=== PATIENT | female | born 1995 | race Caucasian/White ===

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

== ENCOUNTER 2018-06-18 04:21 | Emergency (ER) | payer OTHER ==
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
[2018-06-18 08:31] VITALS: BP 121/97
== END 2018-06-18 08:38 | disposition home or self-care (01) ==
LOC: ED 04:21
DX: F10.129 Alcohol abuse with intoxication, unspecified (principal); Z88.0 Allergy status to penicillin
CPT/HCPCS: 99283

== ENCOUNTER 2018-12-13 05:03 | Emergency (ER) | payer BC, OTHER ==
[2018-12-13] MEDS ORDERED: Cocaine 4% TOPICAL* 4 ML TOP.SOLN LEFT NARE ONE (05:20)
--- NOTE | 2018-12-13 05:23 | ED ---
Throat Pain/Nasal Congestion - HPI Summary HPI Summary: Pt is a 23 y/o F presenting to the ED with a chief complaint of epistaxis. She states that she has been experiencing epistaxis intermittently since 12/09/18. She states she woke up three separate times tonight due to her bloody nose, and it is usually in the L nostril but tonight it was both. She also notes that she has been bruising very easily lately. - History of Current Complaint Chief Complaint: EDEpistaxis Time Seen by Provider: 12/13/18 05:16 Hx Obtained From: Patient Onset/Duration: Gradual Onset, Lasting Days, Still Present Severity: Moderate Related History: T & A - Allergies/Home Medications Allergies/Adverse Reactions: Allergies Allergy/AdvReac Type Severity Reaction Status Date / Time Penicillins Allergy Unknown Verified 12/13/18 05:06 Reaction Details Home Medications: Home Medications EPINEPHrine [Epinephrine] 0.3 mg IM SEE INSTRUCTIONS PRN 12/13/18 [History Confirmed 12/13/18] PMH/Surg Hx/FS Hx/Imm Hx Previously Healthy: Yes Endocrine/Hematology History: Denies: Hx Diabetes Cardiovascular History: Denies: Hx Coronary Artery Disease - Surgical History Surgery Procedure, Year, and Place: T & A. TUBES IN EARS X2 Infectious Disease History: No Infectious Disease History: Denies: Traveled Outside the [place] in Last 30 Days - Family History Known Family History: Negative: Cardiac Disease - Social History Alcohol Use: Occasionally Hx Substance Use: No Substance Use Type: Reports: None Hx Tobacco Use: No Smoking Status (MU): Never Smoked Tobacco Review of Systems Positive: Epistaxis Positive: Bruising All Other Systems Reviewed And Are Negative: Yes Physical Exam - Summary Physical Exam Summary: Appearance: Well-appearing, Well-nourished, lying in bed comfortably Skin: Warm, dry, no obvious rash Eyes: sclera anicteric, no conjunctival pallor ENT: mucous membranes moist, pharynx appears normal. Small amount of fresh clotted blood in L nare. Neck: Supple, nontender Respiratory: Clear to auscultation, no signs of respiratory distress Cardiovascular: Normal S1, S2. No murmurs. Normal distal pulses in tibial and radial bilaterally. Abdomen: Soft, nontender, normal active bowel sounds present Musculoskeletal: Normal, Strength/ROM Intact Neurological: A&Ox3, awake and alert, mentation is normal, speech is fluent and appropriate Psychiatric: affect is normal, does not appear anxious or depressed Triage Information Reviewed: Yes Vital Signs On Initial Exam: Initial Vitals Temp Pulse Resp BP Pulse Ox 98.1 F 82 16 127/79 99 12/13/18 05:05 12/13/18 05:05 12/13/18 05:05 12/13/18 05:05 12/13/18 05:05 Vital Signs Reviewed: Yes Diagnostics - Vital Signs Vital Signs Temp Pulse Resp BP Pulse Ox 12/13/18 05:05 98.1 F 82 16 127/79 99 - Laboratory Result Diagrams: 12/13/18 05:32 Lab Statement: Any lab studies that have been ordered have been reviewed, and results considered in the medical decision making process. EENT Course/Dx - Course Course Of Treatment: Pt is a 23 y/o F presenting to the ED with a chief complaint of epistaxis that has been happening intermittently since 12/09/18. She reports it happening mostly in her L nostril, but tonight in both. She also notes that she has been bruising easily lately. On exam, there was a small amount of fresh clotted blood on the L nare. After applying 4% cocaine solution via cotton, there was a possible source of bleeding identified which was cauterized. She will be d/c'ed with dx of epistaxis. She is stable and agreeable with this plan. - Diagnoses Provider Diagnoses: Epistaxis Discharge ED - Sign-Out/Discharge Documenting (check all that apply): Patient Departure Patient Received Moderate/Deep Sedation with Procedure: No - Discharge Plan Condition: Good Disposition: HOME Patient Education Materials: Nosebleed (ED) Referrals: Michael Holguin MD [Medical Doctor] - Rica Camilo NP [Primary Care Provider] - Additional Instructions: Some of the blood work about your blood clotting will take several days to come back, so you will need to schedule a followup visit to go over those tests and see if further evaluation is needed for your easy bruising and nasal bleeding. The initial blood counts and coagulation tests were ok. - Billing Disposition and Condition Condition: GOOD Disposition: Home - Attestation Statements Document Initiated by Scribe: Yes Documenting Scribe: Josephine Farah Provider For Whom Ikeibe is Documenting (Include Credential): Jayme العلي MD. Scribe Attestation: I, Josephine Farah, scribed for Jayme العلي MD. on 12/16/18 at 2046. Scribe Documentation Reviewed: Yes Provider Attestation: The documentation as recorded by the scribe, Josephine Farah accurately reflects the service I personally performed and the decisions made by me, Jayme العلي MD. Status of Scribe Document: Viewed
[2018-12-13 05:40] LABS: ABS Basophils 0.1 10^3/ul (0-0.2); ABS Eosinophils 0.4 10^3/ul (0-0.6); ABS Monocytes 0.8 10^3/ul (0-0.8); ABS Neutrophils 9.3 10^3/ul (1.5-7.7); Eosinophil % 3.2 %; Hematocrit 34 % (35-47); Hemoglobin 11.3 g/dL (12.0-16.0); Lymphocyte % 15.9 %; Mean Corpuscular HGB Conc 33 g/dL (31-36); Mean Corpuscular Hemoglobin 30 pg (27-31); Mean Corpuscular Volume 90 fL (80-97); Mean Platelet Volume 8.2 fL (7.4-10.4); Platelet Count 236 10^3/uL (150-450); Red Blood Count 3.76 10^6 /uL (3.70-4.87); Red Cell Distribution Width 14 % (10-15); White Blood Count 12.6 10^3/uL (3.5-10.8)
[2018-12-13 05:48] LABS: Activated Partial Thrombo Time 30.1 seconds (26.0-38.0); INR 0.96 (0.82-1.09)
[2018-12-13] MEDS ORDERED: Silver Nitrate/Potassium Nitr* 1 EA STICK ONE (06:02)
[2018-12-13 06:14] VITALS: BP 125/74
[2018-12-15 16:56] LABS: Coagulation Factor VIII Activi 120 % (55 - 200); Special Coag Interp Performed
== END 2018-12-13 06:10 | disposition home or self-care (01) ==
LOC: ED 05:03
DX: R04.0 Epistaxis (principal); Z79.899 Other long term (current) drug therapy; Z88.0 Allergy status to penicillin
CPT/HCPCS: 36415; 85025; 85240; 85390; 85610; 85730; 99282; A9270-GY